=== PATIENT | female | born 1985 | race Caucasian/White ===

== ENCOUNTER 2016-11-30 14:32 | Emergency (ER) | payer SELFPAY ==
--- NOTE | ~2016-11-30 | CR93 ---
[facility] A Service of [facility] & [facility] RADIOLOGY TEXT RESULTS PATIENT: DANA DELGADILLO LOCATION: [facility] : 89 UNIT #: [id number] AGE: [address]: TAE JARAMILLO SEX: F ORDER DR: [id number] [facility] [address] [place], [place] [address] [id number] E MR#: [id number] Acc #: [id number] NAME: DANA DELGADILLO : 1985 SEX: F STUDY DATE/TIME: 11/30/2016 1517 UNIT: [facility] ROOM: STUDY DESCRIPTION: CR Elbow Min 3 Views Lt Attending Physician: Tae Jaramillo Aprn Ordering Physician: Tae Jaramillo Aprn Primary Care Physician: [facility], [facility] MEDICAL IMAGING REPORT This report is preliminary unless electronic signature is present EXAM Left elbow 3 views 11/30/2016 1517 hours HISTORY Patient complains of difficulty moving fingers, finger pain with pain radiating proximally to the elbow today. No reported injury. COMPARISON None. FINDINGS AP, lateral and oblique views demonstrate no elbow joint effusion, fracture or degenerative change. IMPRESSION Negative left elbow. Dictated by... Martha Carvalho M.D. THIS IS AN ELECTRONICALLY VERIFIED REPORT Martha Carvalho M.D. at 12/03/2016 9:07 AM Darling TD: 11/30/2016 18:14 JOB #: [id number] MEDICAL IMAGING REPORT Page 1 of 1 COPY
[~2016-11-30 14:32] MED LIST: AMOXIL500 M1 PO; DELSYM30 MG/5 M1 PO; IBUPROFEN800 MG PO; TAMIFLU75 M1 PO; TYLENOL #3 PO; VICODIN 5/500 T1 TAB PO; ZITHROMAX PO
== END 2016-11-30 16:13 | disposition home or self-care (01) ==
LOC: CFTX 14:32 → CED 14:32 → CFTX 15:41
DX: S64.92XA Injury of unspecified nerve at wrist and hand level of left arm, initial encounter (principal); G83.24 Monoplegia of upper limb affecting left nondominant side; F17.210 Nicotine dependence, cigarettes, uncomplicated; X58.XXXA Exposure to other specified factors, initial encounter; Y92.9 Unspecified place or not applicable
CPT/HCPCS: 73080; 99283

== ENCOUNTER 2017-02-26 16:29 | Emergency (ER) | payer OTHER ==
[~2017-02-26] VITALS: Ht 160 cm; Wt 59.0 kg
[2017-02-26 17:35] LABS: INFLUENZA A NEG (NEG); INFLUENZA B NEG (NEG)
== END 2017-02-26 17:45 | disposition home or self-care (01) ==
LOC: CFTX 16:29 → CED 16:29 → CFTX 16:47
PROVIDERS: Nurse Practitioner Family
DX: J06.9 Acute upper respiratory infection, unspecified (principal); H65.01 Acute serous otitis media, right ear; R56.9 Unspecified convulsions; F17.210 Nicotine dependence, cigarettes, uncomplicated
CPT/HCPCS: 87651; 87804; 99283